=== PATIENT | female | born 1935 | race Caucasian/White ===

== ENCOUNTER 2016-12-07 11:27 | Emergency (ER) | payer OTHER, BC ==
[2016-12-07 11:38] VITALS: BMI 18.6
--- NOTE | 2016-12-07 11:45 | PDOC ---
History of Present Illness - General Chief Complaint: Pain Stated Complaint: LEFT LEG PAIN Time Seen by Provider: 12/07/16 11:33 History Source: Patient Exam Limitations: No Limitations - History of Present Illness Initial Comments: 12/07/16 11:47 This is a heladio 81 yo F with a history of HTN, Hypothyroidism, and Vertigo She presents to the ER with a complaint of left groin pain Patient states that she was in her usual state of health until last evening. She noted severe left groin pain when she attempted to stand up. She was unable to do so. This morning she attempted to walk, and her left leg gave out under her. She did not fall. She did not hit her head. Patient states that she has difficulty ambulating due to severe left groin pain. As result she started using a chair as a makeshift walker. She also notes lower back pain Pain last night was 10/10 Currently, she has no pain, it has resolved (she is not walking) Her daughter gave her Aleeve Of note, pt fell in [place] 2 weeks ago She did not go to the hospital PMH: HTN, Vertigo, Hypothyroidism PSH: denies Meds: please see MAR ALL: NKDA Social: Denies alcohol, drugs, cigarettes EVER. She is a . Travels between [facility] and [place], currently living independently. Was a fast food sales assistant GENERAL/CONSTITUTIONAL: No: fever, chills, weakness, loss of appetite. HEAD, EYES, EARS, NOSE AND THROAT: No: change in vision, ear pain, discharge, sore throat, throat swelling. CARDIOVASCULAR: No: chest pain, lightheadedness, palpitations, syncope RESPIRATORY: No: cough, shortness of breath, wheezing, hemoptysis, stridor. GASTROINTESTINAL: No: nausea, vomiting, diarrhea, abdominal cramping, rectal bleeding, constipation. GENITOURINARY: No: dysuria, hematuria, frequency, urgency, flank pain. MUSCULOSKELETAL: Yes: back pain, hip pain, groin pain No: neck pain, joint pain , muscle swelling or pain SKIN: No: bruising NEUROLOGIC: No: headache, vertigo, paresthesias, weakness ENDOCRINE: No: unexplained weight gain or loss HEMATOLOGIC/LYMPHATIC: No: anemia, easy bleeding, swelling nodes. GENERAL: The patient is in no acute distress. HEAD: Normal with no signs of trauma. EYES: PERRLA, EOMI, sclera anicteric, conjunctiva clear. ENT: Ears normal, nares patent, oropharynx clear without exudates. Moist mucous membranes. NECK: Normal range of motion, supple without lymphadenopathy, JVD, or masses. LUNGS: Breath sounds equal, clear to auscultation bilaterally. No wheezes, and no crackles. HEART:Regular rate and rhythm, normal S1 and S2 without murmur, rub or gallop. ABDOMEN: Soft, nontender, normoactive bowel sounds. No guarding, no rebound. No masses palpable. EXTREMITIES: Normal range of motion, no edema. No clubbing or cyanosis. No erythema, or tenderness. NEUROLOGICAL: Cranial nerves II through XII grossly intact. Normal speech. No focal neurological deficits. MUSCULOSKELETAL: Back non-tender to palpation, left groin pain, (+) left lower back pain, pain worse with internal rotation of the leg SKIN: Warm, Dry, normal turgor, no rashes or lesions noted. 12/07/16 12:06 Past History - Past Medical History Allergies/Adverse Reactions: Allergies Allergy/AdvReac Type Severity Reaction Status Date / Time No Known Allergies Allergy Verified 12/07/16 11:30 Home Medications: Ambulatory Orders Acetaminophen W/ Codeine #3 [Tylenol # 3 -] 1 tab PO BID #10 tablet MDD 2 Amlodipine Besylate [Norvasc -] 5 mg PO DAILY 12/07/16 Atenolol [Tenormin] 0 mg PO BID 12/07/16 Cyclobenzaprine HCl [Flexeril 10 mg] 5 mg PO BID PRN #10 tablet 12/07/16 Levothyroxine [Synthroid -] 50 mcg PO DAILY 12/07/16 Meclizine HCl [Antivert -] 25 mg PO DAILY 12/07/16 HTN: Yes Seizures: Yes Other medical history: VERTIGO - Psycho/Social/Smoking Cessation Hx Anxiety: No Suicidal Ideation: No Smoking History: Never smoked Information on smoking cessation initiated: No Hx Alcohol Use: No Drug/Substance Use Hx: No Substance Use Type: None *Physical Exam - Vital Signs Last Vital Signs Temp Pulse Resp BP Pulse Ox 98.9 F 82 18 102/50 96 12/07/16 11:29 12/07/16 11:29 12/07/16 11:29 12/07/16 11:29 12/07/16 11:29 ED Treatment Course - LABORATORY CBC & Chemistry Diagram: 12/07/16 13:18 12/07/16 13:18 Medical Decision Making - Medical Decision Making 12/07/16 12:10 Will do xrays Pt may need CT scan She does not want pain medications at this time 12/07/16 13:09 xrays do not appear to show a fracture Will do CT Pt has no pain in knee or thigh 12/07/16 14:18 12/07/16 14:19 Laboratory Tests 12/07/16 12/07/16 13:18 13:18 WBC 8.2 Hgb 12.6 Hct 39.1 Plt Count 292 Neutrophils % 77.7 Lymphocytes % 10.3 Sodium 135 L Potassium 3.7 Chloride 103 Carbon Dioxide 25 Anion Gap 7 L BUN 22 H Creatinine 0.9 Random Glucose [address] negative for fracture or dislocation Xrays demonstrate arthritic changes Pt has difficulty ambulating 12/07/16 14:56 Pt will be discharged to home Pt daughter would like her to go home and she will stay with her to assist her Will get Walker for this patient to be ambulatory Will discharge on Tylenol #3 and Flexeril I have cleared this with the patient's son (who is a physician) Pt is sensitive to medications Will refer to Ortho for PT evaluation *DC/Admit/Observation/Transfer Diagnosis at time of Disposition: Musculoskeletal pain of left lower extremity - Discharge Dispostion Disposition: HOME Condition at time of disposition: Fair Admit: No - Prescriptions Prescriptions: Cyclobenzaprine HCl [Flexeril 10 mg] 5 mg PO BID PRN #10 tablet PRN Reason: Back Pain Acetaminophen W/ Codeine #3 [Tylenol # 3 -] 1 tab PO BID #10 tablet MDD 2 - Referrals Referrals: Amos Miles MD [Staff Physician] - - Patient Instructions Printed Discharge Instructions: DI for Musculoskeletal Pain Additional Instructions: Thank you for coming in to the ER today Please take medications as prescribed Please walk with your walker while at home Please please please follow up with the orthopedist They will be able to refer you to the physical therapist for further evaluation If you are having difficulty at home, or have any new symptoms, please come back to the ER We will be happy to see you and take care of you
[2016-12-07 13:45] LABS: BASOPHIL 0.8 % (0-2.0); MCH 27.1 pg (25.7-33.7); MCHC 32.1 g/dl (32.0-36.0); MEAN CELL VOLUME 84.3 fl (80-96); MEAN PLT VOLUME 8.6 fl (7.5-11.1); NEUTROPHILS 77.7 % (42.8-82.8); PLATELET COUNT 292 K/MM3 (134-434); RDW 14.2 % (11.6-15.6); WHITE BLOOD COUNT 8.2 K/mm3 (4.0-10.8)
[2016-12-07 13:53] LABS: ALBUMIN 3.7 g/dl (3.5-5.0); ALK PHOS 97 U/L (32-92); ANION GAP 7 (8-16); BILIRUBIN,TOTAL 0.5 mg/dl (0.2-1.0); CALCIUM 8.7 mg/dl (8.4-10.2); CO2 25 mmol/L (22-28); CREATININE 0.9 mg/dl (0.6-1.3); GLUCOSE,RANDOM 121 mg/dl (74-106); SGOT/AST 25 U/L (10-42); SGPT/ALT 15 U/L (10-40)
[2016-12-07 15:29] VITALS: BP 128/56; PULSE 81; TEMP 98.5
== END 2016-12-07 15:56 | disposition home or self-care (01) ==
LOC: FER 11:27
DX: M79.1 Myalgia (principal); M79.662 Pain in left lower leg; I10 Essential (primary) hypertension; E03.9 Hypothyroidism, unspecified; R42 Dizziness and giddiness
CPT/HCPCS: 36415; 72100-TC; 72192-TC; 73523-TC; 80053; 85025; 99282-25